=== PATIENT | male | born 2005 | race Caucasian/White ===

== ENCOUNTER → 2023-10-20 11:56 | Outpatient (REF) | payer BC, OTHER, SELFPAY ==
[2023-10-20 15:31] LABS: Urine Albumin Negative (Neg - Trace); Urine Bilirubin Negative (Negative); Urine Character Slightly Cloudy (Clear); Urine Color Yellow; Urine Glucose Negative (Negative); Urine Ketone Negative (Negative); Urine Leukocyte Negative (Negative); Urine Nitrite Negative (Negative); Urine Occult Blood Negative (Negative); Urine Specific Gravity 1.015 (<1.030); Urine Urobilinogen Negative (Neg - 1+)
[2023-10-20 15:47] LABS: Blood Urea Nitrogen 19 mg/dl (9-20); Calcium 9.3 mg/dl (8.4-10.2); Carbon Dioxide 30 mmol/L (22-30); Chloride 103 mmol/L (98-107); Glucose 91 mg/dl (70-99); Potassium 4.6 mmol/L (3.5-5.1); Sodium 136 mmol/L (135-145); eGFR > 60.00
== END ==
LOC: HWLAB 11:56
PROVIDERS: ATTENDING PHYSICIAN Allergy & Immunology; FAMILY PHYSICIAN Nurse Practitioner Family
DX: R35.1 Nocturia (principal); T78.1XXA Other adverse food reactions, not elsewhere classified, initial encounter; T78.05XA Anaphylactic reaction due to tree nuts and seeds, initial encounter
CPT/HCPCS: 36415; 80048; 81003; 86003

== ENCOUNTER → 2023-10-28 11:18 | Outpatient (REF) | payer BC, OTHER, SELFPAY ==
[2023-10-28 16:17] LABS: ALT (SGPT) 15 U/L (0-50); AST (SGOT) 25 U/L (17-59); Albumin 4.1 g/dl (3.5-5.0); Alkaline Phosphatase 47 U/L (38-126); Blood Urea Nitrogen 17 mg/dl (9-20); Calcium 9.5 mg/dl (8.4-10.2); Carbon Dioxide 28 mmol/L (22-30); Chloride 106 mmol/L (98-107); Glucose 96 mg/dl (70-99); Iron 24 ug/dl (49-181); Potassium 4.6 mmol/L (3.5-5.1); Sodium 140 mmol/L (135-145); Total Bilirubin 0.2 mg/dl (0.2-1.3); Total Protein 6.4 g/dl (6.3-8.2); eGFR > 60.00
[2023-10-28 16:22] LABS: C-Reactive Protein < 5.00 mg/L (0.0-10.00)
[2023-10-28 16:32] LABS: Percent Saturation 5 % (20-50); Total Iron Binding Capacity 439 ug/dl (261-462)
[2023-10-28 16:34] LABS: % Basophils 1.2 % (0-2); % Eosinophils 15.2 % (0-6); % Immature Granulocytes 0.1 % (0-0.5); % Lymphocytes 32.9 % (20.5-51.1); % Monocytes 6.3 % (1.7-9.3); % Neutrophils 44.3 % (42.2-75.2); Absolute Basophils 0.1 10^3/uL (0-0.2); Absolute Eosinophils 1.2 10^3/uL (0-0.7); Absolute Lymphocytes 2.5 10^3/uL (1.2-3.4); Absolute Monocytes 0.5 10^3/uL (0.1-0.6); Absolute Neutrophils 3.4 10^3/uL (1.4-6.5); Hematocrit 34.3 % (39.0-52.0); Hemoglobin 10.1 g/dL (13.0-18.0); Mean Corp Hgb Conc. 29.4 g/dL (33.0-37.0); Mean Corpuscular Hgb 20.8 pg (27.0-31.0); Mean Corpuscular Volume 70.6 fL (80.0-94.0); Mean Platelet Volume 11.3 fL (7.4-10.4); Nucleated Red Blood Cells % 0 % (-); Platelet Count 342 10^3/uL (130-400); Red Blood Cell Count 4.86 10^6/uL (4.70-6.10); Red Cell Dist. Width 16.6 % (11.5-14.5); White Blood Cell Count 7.6 10^3/uL (4.8-10.8)
[2023-10-28 16:57] LABS: Ferritin 4.9 ng/ml (17.9-464.0)
== END ==
LOC: HWLAB 11:18
PROVIDERS: ATTENDING PHYSICIAN Pediatrics; FAMILY PHYSICIAN Nurse Practitioner Family
DX: K20.0 Eosinophilic esophagitis (principal); K50.00 Crohn's disease of small intestine without complications
CPT/HCPCS: 36415; 80053; 82728; 83540; 83550; 85025; 86140

== ENCOUNTER → 2024-02-10 09:34 | Outpatient (REF) | payer BC, OTHER, SELFPAY ==
[2024-02-10 12:58] LABS: % Basophils 0.8 % (0-2); % Eosinophils 12.1 % (0-6); % Immature Granulocytes 0.2 % (0-0.5); % Lymphocytes 36.8 % (20.5-51.1); % Monocytes 7.1 % (1.7-9.3); Absolute Basophils 0.1 10^3/uL (0-0.2); Absolute Eosinophils 0.8 10^3/uL (0-0.7); Absolute Lymphocytes 2.3 10^3/uL (1.2-3.4); Absolute Monocytes 0.5 10^3/uL (0.1-0.6); Absolute Neutrophils 2.7 10^3/uL (1.4-6.5); Hematocrit 44.5 % (39.0-52.0); Hemoglobin 13.7 g/dL (13.0-18.0); INR 1.03; Mean Corp Hgb Conc. 30.8 g/dL (33.0-37.0); Mean Corpuscular Hgb 25.8 pg (27.0-31.0); Mean Platelet Volume 10.9 fL (7.4-10.4); Nucleated Red Blood Cells % 0 % (-); PT 13.8 Sec (11.4-14.6); Platelet Count 248 10^3/uL (130-400); Red Cell Dist. Width 16.1 % (11.5-14.5); White Blood Cell Count 6.3 10^3/uL (4.8-10.8)
[2024-02-10 12:59] LABS: APTT 30.7 Sec (23.4-35.0)
== END ==
LOC: HWLAB 09:34
PROVIDERS: ATTENDING PHYSICIAN Otolaryngology; FAMILY PHYSICIAN Nurse Practitioner Family
DX: Z01.812 Encounter for preprocedural laboratory examination (principal)
CPT/HCPCS: 36415; 85025; 85610; 85730

== ENCOUNTER → 2024-03-19 12:07 | Outpatient (REF) | payer BC, OTHER, SELFPAY | LOC: HWLAB 12:07 | PROVIDERS: ATTENDING PHYSICIAN Pediatrics; FAMILY PHYSICIAN Nurse Practitioner Family | DX: K50.00 Crohn's disease of small intestine without complications (principal) | CPT/HCPCS: 83993 ==

== ENCOUNTER → 2024-06-29 09:10 | Outpatient (REF) | payer OTHER, BC, SELFPAY ==
[2024-06-29 12:35] LABS: ALT (SGPT) 20 U/L (0-50); AST (SGOT) 24 U/L (17-59); Alkaline Phosphatase 54 U/L (38-126); Blood Urea Nitrogen 17 mg/dl (9-20); Calcium 9.4 mg/dl (8.4-10.2); Carbon Dioxide 30 mmol/L (22-30); Chloride 105 mmol/L (98-107); Glucose 100 mg/dl (70-99); Potassium 4.8 mmol/L (3.5-5.1); Sodium 142 mmol/L (135-145); Total Bilirubin 0.5 mg/dl (0.2-1.3); Total Protein 6.6 g/dl (6.3-8.2); eGFR > 60.00
[2024-06-29 13:04] LABS: Hepatitis B Surface Antigen Negative (Negative)
[2024-06-29 13:21] LABS: Hepatitis C Antibody Negative (Negative)
[2024-06-29 13:40] LABS: HIV Combo Negative (Negative)
[2024-07-01 13:21] LABS: Syphilis/T. pallidum Ab Reflex Negative (Negative)
== END ==
LOC: HWRAD 09:10
PROVIDERS: ATTENDING PHYSICIAN Nurse Practitioner Family
DX: R59.1 Generalized enlarged lymph nodes (principal); R79.89 Other specified abnormal findings of blood chemistry; D84.9 Immunodeficiency, unspecified
CPT/HCPCS: 36415; 71046; 80053; 86780; 86803; 87340; 87389; 87491; 87591

== ENCOUNTER → 2024-07-06 06:55 | Outpatient (REF) | payer BC, OTHER, SELFPAY | LOC: HWRAD 06:55 | PROVIDERS: ATTENDING PHYSICIAN Nurse Practitioner Family | DX: R59.1 Generalized enlarged lymph nodes (principal); R79.89 Other specified abnormal findings of blood chemistry; D84.9 Immunodeficiency, unspecified | CPT/HCPCS: 76870; 76882; 93976 ==

== ENCOUNTER → 2024-09-24 08:14 | Outpatient (REF) | payer BC, SELFPAY ==
[2024-09-24 09:24] LABS: Hematocrit 43.1 % (39.0-52.0); Hemoglobin 14.2 g/dL (13.0-18.0); Mean Corp Hgb Conc. 32.9 g/dL (33.0-37.0); Mean Corpuscular Volume 84.0 fL (80.0-94.0); Nucleated Red Blood Cells % 0 % (-); Platelet Count 223 10^3/uL (130-400); Red Cell Dist. Width 14.1 % (11.5-14.5)
[2024-09-24 09:57] LABS: ALT (SGPT) 20 U/L (0-50); AST (SGOT) 33 U/L (17-59); Albumin 4.4 g/dl (3.5-5.0); Alkaline Phosphatase 60 U/L (38-126); Blood Urea Nitrogen 16 mg/dl (9-20); Calcium 9.0 mg/dl (8.4-10.2); Carbon Dioxide 25 mmol/L (22-30); Chloride 108 mmol/L (98-107); Glucose 113 mg/dl (70-99); Potassium 4.3 mmol/L (3.5-5.1); Sodium 140 mmol/L (135-145); Total Protein 7.5 g/dl (6.3-8.2); eGFR > 60.00
[2024-09-24 14:20] LABS: Free T3 5.81 pg/ml (2.77-5.27)
== END ==
LOC: HWLAB 08:14
PROVIDERS: ATTENDING PHYSICIAN Nurse Practitioner Family
DX: R53.83 Other fatigue (principal)
CPT/HCPCS: 36415; 80053; 84439; 84443; 84481; 85025